=== PATIENT | female | born 1955 | race Caucasian/White ===

== ENCOUNTER 2021-12-12 09:41 | Outpatient (CLI) | payer MEDICARE ==
--- NOTE | 2021-12-12 11:42 | Magnetic Resonance Report ---
MRI ABDOMEN WITHOUT AND WITH CONTRAST INDICATION / CLINICAL INFORMATION: LIVER CIRRHOSIS, ABD PAIN. TECHNIQUE: Multiplanar, multisequence series were obtained through the abdomen. 20 cc of MultiHance was administ ered intravenously for postcontrast imaging. COMPARISON: None at this facility FINDINGS: LIVER: The liver is normal size and signal. There is suggestion of mild surface nodularity which coul d represent early cirrhotic changes. No suspicious liver mass is detected. GALLBLADDER: No significant abnormality. BILE DUCTS: No significant abnormality. PANCREAS: No significant abnormality. SPLEEN: There is borderline to mild splenomegaly measuring 12.5 cm. ADRENALS: No significant abnormality. RIGHT KIDNEY AND URETER: No significant abnormality. LEFT KIDNEY AND URETER: No significant abnormality. STOMACH AND VISUALIZED BOWEL: No significant abnormality. PERITONEUM: Trace perihepatic ascites is identified. No free air. No fluid collection. LYMPH NODES: No significant adenopathy. AORTA and ARTERIES: No significant abnormality. IVC and VEINS: No significant abnormality. ADDITIONAL FINDINGS: None. SKELETAL SYSTEM: No significant abnormality. IMPRESSION: Minimal to mild cirrhotic changes are suggested in the liver. Borderline splenomegaly. Trace perihep atic ascites. No evidence for mass, adenopathy or acute process. Signer Name: Hema Alfredo Jr, MD Signed: 12/12/2021 11:38 AM Workstation Name: [id number]
== END 2021-12-12 09:42 | disposition home or self-care (01) ==
LOC: MRI 09:41
PROVIDERS: ATTEND Internal Medicine Gastroenterology
DX: K74.60 Unspecified cirrhosis of liver (principal); B18.2 Chronic viral hepatitis C; R16.1 Splenomegaly, not elsewhere classified; R18.8 Other ascites
CPT/HCPCS: 74183; A9575